=== PATIENT | female | born 1960 | race Caucasian/White ===

== ENCOUNTER 2018-11-02 16:51 | Inpatient (IN) ==
[2018-11-02] MEDS ORDERED: NS 1,000 ML IV ONE ×2 (18:28→20:26)
[2018-11-02] MEDS ORDERED: ZOFRAN IV ONE (18:28)
[2018-11-02] MEDS ORDERED: DEMEROL IV ONE (18:29)
--- NOTE | 2018-11-02 18:41 | PROVIDER DOCUMENTATION ---
This chart was entered by Elise Fournier Scribe, acting as scribe for Regulo Cannon MD. HPI-Abdominal Pain/GI Problem - General Chief Complaint: Abdominal Pain Stated Complaint: GALLBLADDER PAIN,VOMITING Time Seen by Provider: 11/02/18 17:54 Source: patient Allergies/Adverse Reactions: Patient Allergies Allergy/AdvReac Type Severity Reaction Status Date / Time No Known Allergies Allergy Verified 11/02/18 03:47 Home Medications: Home Medication List Medication Instructions Recorded Confirmed Last Taken Type Hydrocodone/Acetaminophen [[place] 1 ea PO Q6-8H PRN PRN #30 tab 11/02/18 Unknown Rx 7.5-325 Tablet] Promethazine [Phenergan] 25 mg PO Q6H PRN PRN #20 tab 11/02/18 Unknown Rx - History of Present Illness-ABD Nature of Presenting Problems: pt is a 58 yr old female presenting with 1 day complaint of nausea, vomiting and RUQ pain. pt seen here this am for same, dx as cholesistitis, pt was sent home after pain resolved, pt now reports pain increased and now unable to keep any food or liquids down, pt has attempted to take nausea medication but has thrown them up each time. Abdominal Pain Onset Location: reports: RUQ Pain Radiation: reports: no radiation Quality of Pain: reports: cramping, sharp Severity in ED: reports: severe Onset/Duration: reports: last night Activities at Onset: reports: rest Exposure to sick contacts?: No Modifying Factors: improves with: other medication (zofran without relief) Associated Symptoms: reports: nausea, vomiting Dark Stools Present?: reports: none noticed Rectal Bleeding: reports: none Rectal Pain: reports: none Emesis Description: reports: clear Bruising or Bleeding Gums?: No Similar Symptoms Previously?: Yes Recently seen or treated by another doctor?: Yes (seen here this am for same) Review of Systems - Adult - REVIEW OF SYSTEMS - ADULT Constitutional: denies: chills, fever Eyes: reports: no symptoms reported Ears, Nose, Mouth & Throat: reports: no symptoms reported Cardiovascular: reports: no symptoms reported Respiratory: reports: no symptoms reported Gastrointestinal: reports: abdominal pain, nausea, vomiting Genitourinary: denies: dysuria, frequency, flank pain Musculoskeletal: denies: back pain, muscle aches, neck pain Integumentary: reports: no symptoms reported Neurological: denies: dizziness/vertigo, headache/migraines Psychiatric: reports: no symptoms reported Endocrine: reports: no symptoms reported Hematologic/Lymphatic: reports: no symptoms reported Allergic/Immunologic: reports: no symptoms reported All Other Systems: Reviewed and Negative Past History - Adult - PAST MEDICAL HISTORY-ADULT Review of Records: reports: Old Records Reviewed, Nursing Assessment Review, Medications Reviewed, Social history reviewed & non-contributory. Major Childhood Illnesses: reports: denies history Cardiovascular: reports: denies history Respiratory: reports: denies history Gastrointestinal: reports: denies history Obstetrical/Gynecological: reports: denies history Genitourinary: reports: denies history Musculoskeletal: reports: denies history Neurological: reports: denies history Psychiatric: reports: denies history Endocrine/Immune: reports: denies history Other Conditions: reports: denies history - IMMUNIZATION STATUS Childhood Immunizations: See Nurse Assessment Flu Vaccine: See Nurse Assessment - FAMILY HISTORY Family History: reviewed, not pertinent - SOCIAL HISTORY Smoking: denies Substance Use: denies Living Situation: family Physical Exam-General - PHYSICAL EXAM-ADULT Initial Vital Signs Reviewed: Yes - CONSTITUTIONAL General Appearance: alert, no apparent distress - EYES Eyes: PERRL/EOMI - HEAD, EARS, NOSE, MOUTH & THROAT HENMT: normocephalic/atraumatic, moist mucous membranes - NECK Neck: non-tender, full range of motion, supple - RESPIRATORY Respiratory: chest non-tender, lungs clear, normal breath sounds - CARDIOVASCULAR Cardiovascular: normal peripheral pulses, regular rate, rhythm, no edema - GASTROINTESTINAL (ABDOMEN) Abdominal Exam: normal bowel sounds, soft, tenderness (RUQ) - LYMPHATIC Lymphatic: no adenopathy - MUSCULOSKELETAL Back Exam: normal inspection, no CVA tenderness, no vertebral tenderness Extremity: normal range of motion, non-tender, normal gait, normal inspection - SKIN Integumentary: normal color, normal turgor, warm/dry - NEUROLOGIC Neurologic: grossly normal, no motor/sensory deficits - PSYCHIATRIC Psych/Mental Status: normal mood/affect Progress - PLAN OF CARE/RESULTS Progress/Plan/Lab Results: Vital Signs - 8 hr 11/02/18 16:57 Temperature 98.2 F Pulse Rate 75 Respiratory Rate 18 Blood Pressure 151/86 O2 Sat by Pulse Oximetry 97 Orders Category Date Time Status CBC WITH ELECTRONIC DIFF [HEME] Stat Lab 11/02/18 17:57 Uncollected COMPREHENSIVE METABOLIC PANEL [CHEM] Stat Lab 11/02/18 17:57 Uncollected UA [URINALYSIS] [URINALYSIS] Stat Lab 11/02/18 17:57 Uncollected 0.9% Sodium Chloride Inj [Ns] 1,000 ml Med 11/02/18 18:28 Active IV 999 mls/hr Meperidine [Demerol] Med 11/02/18 18:29 Once 50 mg IV NOW ONE Ondansetron [Zofran] Med 11/02/18 18:28 Discontinued 4 mg IV NOW ONE - CT/MRI 1 CT Study: Abdomen, Pelvis Impression: Abnormal ( Signed EXAM: CT ABD/PELVIS W/IV CONT ONLY HISTORY: abdominal pain. epigastric TECHNIQUE: CT abdomen and pelvis with intravenous contrast COMPARISON: None. FINDINGS: There is a 2.2 cm stone within the neck of the gallbladder. The gallbladder is distended and the wall is markedly thickened. Normal liver, spleen, pancreas, adrenal glands, and kidneys. No hydronephrosis. Normal aorta. No inflammation about the cecum. No abscess. No bowel obstruction. The urinary bladder is moderately distended and is normal. Normal uterus. Neither ovary is enlarged. IMPRESSION: Distended gallbladder with wall thickening and a large stone in the neck consistent with acute cholecystitis. This report was discussed with Dr. Syed in the emergency room on 11/02/2018 at 5:25 AM and was readback. This exam was performed using automated exposure control, adjustment of mA or kV according to patient size, and/or use of iterative reconstruction technique. Electronically signed by Albin Gar 11/02/2018 5:24 AM 11/02/1824 Interpreting Physician: Albin Gar MD Dictated Date/Time: 11/02/1818 cc: Bar Syed DO; None,PCP) - CONSULTS/PCP/HOSPITALIST Notification #1 *Consult/PCP/Hospitalist*: Dr Salvador Time Discussed: 18:40 Consult Disposition: Admit Departure - Departure Date of Disposition Decision: 11/02/18 Time of Disposition Decision: 18:40 DIAGNOSIS: Acute cholecystitis Disposition: ADMITTED INPATIENT 09 Certified Medical Emergency: Emergent Condition: Fair Referrals and Follow-Ups: None,PCP [Primary Care Provider] - - Critical Care Note This patient required my direct & personal management of CC.: No Attestation - Physician/ ROSA Attestation Patient care was provided by Advanced Practice Provider:: No The physician spent face to face time with patient:: Yes Advanced Practice Provider documentation review:: Supervising physician onsite and consulted in the evaluation and care of this patient. The physician did have a face to face encounter with the patient. This chart was documented by the indicated scribe, (Elise Fournier Scribe) and accurately reflects the services I performed and decisions made by me, Regulo Cannon MD, as attested by the provider's signature.
[2018-11-02] MEDS ORDERED: ZOFRAN IV PRN (18:47)
[2018-11-02] MEDS ORDERED: DILAUDID IM PRN (18:47)
[2018-11-02 19:54] LABS: BASO# 0.02 X1000 (0.0-0.2); BASO% 0.1 % (0.0-0.8); HEMATOCRIT 47.4 % (37.0-47.0); HEMOGLOBIN 15.3 g/dL (12.0-16.0); IMM GRAN# 0.06 X1000 (0.0-0.04); IMM GRAN% 0.4 % (0.0-0.5); LYMPH# 0.85 X1000 (1.2-3.4); LYMPH% 6.4 % (20.5-51.1); MCH 29.5 PG (27-31); MCHC 32.3 g/dL (33-37); MCV 91.5 FL (81-99); MONO# 0.53 X1000 (0.11-0.59); MPV 9.5 FL (7.4-10.4); NEUT# 11.89 X1000 (1.4-6.5); NEUT% 89.1 % (42.2-75.2); PLT 301 X1000 (130-400); RBC 5.18 XMIL (4.2-5.4); RDW 12.5 % (11.5-14.5); WBC 13.35 X1000 (4.8-10.8)
[2018-11-02 20:04] LABS: AGAP 14; ALB/GLOB RATIO 1.4; ALBUMIN 4.3 g/dL (3.5-5.0); ALKALINE PHOSPHATASE 63 U/L (32-104); BUN 9 mg/dL (8-22); CHLORIDE 105 mmol/L (98-107); COSMO 280; CREATININE 0.7 mg/dL (0.5-0.9); ESTIMATED GFR > 60; GLUCOSE 127 mg/dL (70-104); GOT 12 U/L (10-30); GPT 15 U/L (10-36); POTASSIUM 4.1 mmol/L (3.5-5.1); SODIUM 140 mmol/L (136-145); TCO2 21 mmol/L (25-35); TOTAL BILIRUBIN 0.52 mg/dL (0.20-1.00); TOTAL PROTEIN 7.4 g/dL (6.3-8.3)
[2018-11-02] MEDS: ZOSYN 3.375 GM in NS 50 ML IV SCH (20:30)
[2018-11-02 21:08] LABS: URINE SOURCE CLEAN CATCH
[2018-11-02 21:20] LABS: UR EPITHELIAL CELLS <10 /HPF (<10); URINE BACTERIA NEGATIVE /HPF; URINE RBC <10 /HPF (<10); URINE WBC <10 /HPF (<10)
[2018-11-02] MEDS: DILAUDID IV PRN (21:43)
[2018-11-02 21:44] LABS: BILIRUBIN URINE NEGATIVE (NEGATIVE); BLOOD URINE TRACE (NEGATIVE); COLOR YELLOW; GLUCOSE URINE NEGATIVE (NEGATIVE); KETONE URINE 80 mg/dL (NEGATIVE); LEUKOCYTES URINE SMALL (NEGATIVE); NITRITE URINE NEGATIVE (NEGATIVE); PH URINE 6.5; PROTEIN URINE 30 mg/dL (NEGATIVE); SP GRAVITY URINE 1.027; TURBIDITY URINE CLEAR (CLEAR); UROBILINOGEN URINE NORMAL (NORMAL)
[2018-11-03] MEDS: ZOSYN 3.375 GM in NS 50 ML IV SCH ×3 (02:11→15:53)
[2018-11-03] MEDS: DILAUDID IV PRN ×2 (02:29→11:23)
--- NOTE | 2018-11-03 04:01 | HISTORY AND PHYSICAL ---
CHIEF COMPLAINT: Abdominal pain. HISTORY OF PRESENT ILLNESS: This is a 58-year-old female who began having severe right upper quadrant pain yesterday afternoon. She came to the emergency room overnight and was found to have a gallstone on CT scan. The initial report was only that there was mild wall thickening and a gallstone. She also had normal labs, normal vital signs, and her pain was able to be controlled with some pain medicine. The plan was to send her home for short-term followup with me in my office. However later during the day she tried to eat and had nausea and vomiting. She returned to the emergency room. Again her vital signs are stable. She is afebrile. She does have a white count now 13,000 and she is being admitted for acute cholecystitis because her official CT scan report actually shows significant wall thickening of the gallbladder and a stone in the neck of the gallbladder. She has had several attacks like these in the past but they always go away on their own. They tend to be triggered by eating greasy foods. Her pain is now improved since getting some Dilaudid in the emergency room. PAST MEDICAL HISTORY: None. PAST SURGICAL HISTORY: , left salpingo-oophorectomy and appendectomy. ALLERGIES: No known drug allergies. SOCIAL HISTORY: Negative tobacco, alcohol or illicit drug use. 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 FAMILY HISTORY: Reviewed and noncontributory. REVIEW OF SYSTEMS: Ten systems reviewed and negative except as noted above. PHYSICAL EXAMINATION: VITAL SIGNS: Temperature 98.2 degrees, pulse 75, respirations 18, blood pressure 151/86, O2 saturation 97%. GENERAL: Well-developed, well-nourished female in no distress who looks her stated age. HEENT: Normocephalic, atraumatic. Extraocular muscles intact. Pupils equal, round, reactive to light. Sclerae anicteric. Moist mucous membranes. Hearing grossly normal. No oral lesions. NECK: Supple. No thyromegaly. CV: Regular rate and rhythm. RESPIRATORY: Bilateral equal breath sounds. No work of breathing. GASTROINTESTINAL: Soft, nondistended. No organomegaly or mass. There is mild tenderness in the right upper quadrant. No rebound or guarding. She has well-healed lower midline incision without obvious hernia. EXTREMITIES: No clubbing, cyanosis, or edema. SKIN: Warm and dry. No rash. MUSCULOSKELETAL: Moves all extremities equally and well. LABORATORY: Liver function tests are normal. Electrolytes reviewed and unremarkable. White blood cell count is 13,000. IMAGING: CT of abdomen and pelvis is as noted above in HPI. ASSESSMENT AND PLAN: A 58-year-old female with early acute cholecystitis. She is being admitted tonight for nausea and pain control, IV fluids and to start Zosyn with anticipation of laparoscopic cholecystectomy tomorrow. I discussed the risks, benefits, alternatives with her including bleeding, infection, injury to surrounding organs such as the bile duct or intestines and other imponderables. She understands and agrees to proceed. cc: Prosper Salvador MD
--- NOTE | 2018-11-03 13:49 | GENERAL SURGERY PROGRESS NOTE ---
DATE: 11/03/2018 SUBJECTIVE: She continues to have some right upper quadrant pain. No nausea, vomiting, or fever. OBJECTIVE: Vital Signs: She is afebrile. Vital signs are stable. General: She is awake, alert, oriented x4. No acute distress. GI: Soft, mildly tender in the right upper quadrant. Nondistended. ASSESSMENT AND PLAN: A 58-year-old female with early acute cholecystitis. She is on Zosyn. We are planning laparoscopic cholecystectomy with cholangiogram today. There are no new questions. cc: Prosper Salvador MD
[2018-11-03] MEDS ORDERED: SENSORCAINE 0.5%-EPI 1:200,000 ONE (14:23)
[2018-11-03] MEDS ORDERED: SODIUM CHLORIDE 0.9% ONE (14:23)
[2018-11-03] MEDS ORDERED: LR 1,000 ML ONE (14:23)
[2018-11-03] MEDS ORDERED: DIPRIVAN 1% ONE (15:13)
[2018-11-03] MEDS ORDERED: XYLOCAINE-MPF 2% ONE (15:16)
[2018-11-03] MEDS ORDERED: FENTANYL ONE (15:25)
[2018-11-03] MEDS ORDERED: ZOFRAN ONE (16:47)
[2018-11-03] MEDS ORDERED: ROBINUL ONE (16:48)
[2018-11-03] MEDS ORDERED: NORCO-10 PO PRN (17:17)
[2018-11-03] MEDS ORDERED: NORCO-10 ONE (17:27)
--- NOTE | 2018-11-03 17:32 | OPERATIVE NOTE ---
PROCEDURE DATE: 11/03/2018 PREOPERATIVE DIAGNOSIS: Acute cholecystitis. POSTOPERATIVE DIAGNOSIS: Acute cholecystitis. PROCEDURE PERFORMED: Laparoscopic cholecystectomy with operative cholangiogram. SURGEON: Prosper Salvador MD ANESTHESIA: General. ESTIMATED BLOOD LOSS: 10 mL. COMPLICATIONS: None apparent. SPECIMENS: Gallbladder. FINDINGS: The gallbladder was distended, thick-walled and acutely inflamed. The cholangiogram revealed normal proximal hepatic radicles, as well as distal bile duct. There was flow of contrast into the duodenum without filling defects or stenoses. TECHNIQUE: The patient was brought to the operating room and placed supine on the table. General anesthesia was induced, and she was prepped and draped in the usual sterile fashion. Marcaine 0.25% with epinephrine was used to anesthetize our incisions. An 11 mm incision was made above the umbilicus. The fascia was exposed and incised sharply. Entry into the peritoneal cavity was obtained under direct vision with the [employer] device. Pneumoperitoneum was established. The camera was inserted. There was no evidence of injury to underlying structures. She was placed in reverse Trendelenburg and left rotation. Three 5 mm incision ports were placed across the epigastrium and right upper quadrant under direct vision. The dome of the gallbladder was grasped by the behavioral health assistant. It was lifted up. The gallbladder was very distended with bile and thick walled. We took the needle on the suction tip, punctured the gallbladder, and suctioned out bile for better grasping and retraction. The gallbladder was then lifted up superiorly. The triangle of [place] was dissected out with the [place] forceps and hook cautery in the blunt end of the suction tip until the critical view was obtained. The gallbladder liver junction was seen. There were only 2 structures entering the gallbladder, the cystic duct and cystic artery. The cystic artery was clipped proximally and distally and incised in between with scissors. A clip was placed on the distal cystic duct. A ductotomy was made proximal to this with scissors. A 14-gauge Angiocath was passed through the right upper quadrant. The [place] cholangiogram catheter was passed through this into the cystic duct and held in place with a clip. The cholangiogram was performed with findings as noted above. The clip, catheter, and Angiocath were removed. Two clips were placed on the staying inside of the cystic duct. It was divided distally with scissors. The gallbladder was then removed from the liver bed using hook cautery obtaining hemostasis along the way. I then inspected the dissection area of the liver. There was minor bloody ooze, which was controlled with cautery easily. I irrigated with saline and suctioned out the old blood and saline. There were no signs of any further bleeding or bile leakage. The gallbladder was placed in an EndoCatch bag and brought out through the umbilical port site under direct vision. The umbilical fascia was closed with 2 interrupted 0 Vicryl sutures using the Terrance-Dylan device under direct vision. The abdomen was desufflated. The ports were removed. The skin was closed with subcuticular 4-0 Monocryl and Steri-Strips. There were no apparent complications. She was awakened in stable condition and transferred to the recovery room. cc: Prosper Salvador MD
[2018-11-03 19:36] VITALS: BP 129/56
--- NOTE | 2018-11-05 09:35 | Diag Imaging Result Doc PS360 ---
EXAM: OPERATIVE CHOLANGIOGRAM HISTORY: GALLBLADDER DISEASE TECHNIQUE: Intraoperative cholangiogram, two views COMPARISON: None. FINDINGS: Contrast fills the common bile duct. No stone or stricture. Contrast has emptied into the duodenum. IMPRESSION: Normal intraoperative cholangiogram. Electronically signed by Albin Gar 11/05/2018 9:33 AM
== END 2018-11-03 19:48 | disposition home or self-care (01) | DRG 419 ==
LOC: ED 16:51 → 3N 20:45
PROVIDERS: ADMIT Surgery; ATTEND Surgery
CPT/HCPCS: 74300; 80053; 81001; 85025; 88304; 96365; 96375; 99284; A9270; C1751; J1170; J2175; J2405; J2543; J3010; J7030; J7120; Q9966; Q9967